=== PATIENT | male | born 1995 | race Caucasian/White ===

== ENCOUNTER 2016-10-11 21:59 | Emergency (ER) | payer BC, MEDICAID ==
--- NOTE | 2016-10-12 01:19 | ED ---
Skin Complaint - HPI Summary HPI Summary: Pt here w/ Rt great toe laceration - accidentally cut himself here w/ a emy exhaust pipe while working in his garage in flip flops earlier tonight. Reports he took a nap after this happened. Came in now as it was pretty deep and he's not sure if he needed stitches. Also wanted to make sure it doesn't get infected. Denies numbness, tingling, weakness. Last tetanus vaccine is within past 5 years. Admits to hand cuts frequently which heal well. - History of Current Complaint Chief Complaint: EDLacSutureRecheck Time Seen by Provider: 10/12/16 00:29 Stated Complaint: TOE LAC Hx Obtained From: Patient Pain Intensity: 2 - Allergy/Home Medications Allergies/Adverse Reactions: Allergies Allergy/AdvReac Type Severity Reaction Status Date / Time No Known Allergies Allergy Verified 10/11/16 22:06 PMH/Surg Hx/FS Hx/Imm Hx Previously Healthy: Yes Endocrine/Hematology History: Denies: Hx Anticoagulant Therapy, Hx Blood Disorders, Autoimmune Disease Cardiovascular History: Reports: Hx Hypertension - PRE-HYPERTENSION - no meds Denies: Hx Pacemaker/ICD Sensory History: Denies: Hx Hearing Aid Psychiatric History: Denies: Hx Panic Disorder - Immunization History Immunizations Up to Date: Yes Infectious Disease History: No Infectious Disease History: Denies: Hx of Known/Suspected MRSA, Traveled Outside the in Last 30 Days - Social History Occupation: Employed Full-time Lives: With Family Alcohol Use: Rare Hx Substance Use: No Substance Use Type: Reports: None Hx Tobacco Use: Yes Smoking Status (MU): Current Every Day Smoker - vapes Review of Systems Negative: Fever, Chills Positive: no symptoms reported Positive: Edema. Negative: Arthralgia, Myalgia Skin: Other - see HPI Negative: Weakness, Paresthesia, Numbness Psychological: Normal All Other Systems Reviewed And Are Negative: Yes Physical Exam Triage Information Reviewed: Yes Vital Signs On Initial Exam: Initial Vitals Temp Pulse Resp BP Pulse Ox 97.8 F 86 14 147/83 100 10/11/16 21:59 10/11/16 21:59 10/11/16 21:59 10/11/16 21:59 10/11/16 21:59 Vital Signs Reviewed: Yes Appearance: Positive: Well-Appearing, No Pain Distress, Well-Nourished Skin: Positive: Warm, Dry - dry, scabbed linear laceration over plantar surface of Rt great toe - no kinsey debris however toe in general appear dirty w/ stuck on lint, dried blood Head/Face: Positive: Normal Head/Face Inspection Eyes: Positive: Normal, EOMI, Conjunctiva Clear ENT: Positive: Hearing grossly normal, Pharynx normal - mucosa moist Respiratory/Lung Sounds: Positive: Breath Sounds Present Cardiovascular: Positive: Normal, Pulses are Symmetrical in both Upper and Lower Extremities Musculoskeletal: Positive: Normal, Strength/ROM Intact Neurological: Positive: Normal, Sensory/Motor Intact, Alert, Oriented to Person Place, Time, CN Intact II-III Psychiatric: Positive: Normal Procedures - Procedure Summary Procedure Summary: wound soaked and irrigated - no FB observed nor palpated. Pt's wound was dressed w/ triple anbx and sterile gauze dressing - pt tolerated well. Diagnostics - Vital Signs Vital Signs Temp Pulse Resp BP Pulse Ox 10/11/16 22:03 97.8 F 91 14 147/83 100 10/11/16 21:59 97.8 F 86 14 147/83 100 - Laboratory Diagnostic Studies Comment: Rt great toe XR (wet read) - no FB observed Lab Statement: Any lab studies that have been ordered have been reviewed, and results considered in the medical decision making process. Course/Dx - Course Course Of Treatment: Pt presents w/ toe laceration. States he will not be staying off of it via crutches. Sutures, steristrips nor dermabond were applied due to nature of wound and pt's approach to care. Advised daily soaks to prevent infection. reviewed danger s/sx of when to seek medical care. He and mother agree w/ plan and voice understanding. - Diagnoses Provider Diagnoses: Laceration of right great toe Discharge - Discharge Plan Condition: Stable Disposition: HOME Patient Education Materials: Laceration Without Closure (ED) Referrals: Yasmeen Newsome MD [Primary Care Provider] - Additional Instructions: Soak toe 2 x day - once with soapy soak, the other with epsom salt - rinse well , pat dry and apply triple antibiotic ointment and dressing. Keep toe elevated and may ice for pain and swelling. You may also take ibuprofen with food for pain, swelling. Follow-up with PCP for wound check in 3 days. *If you develop redness, swelling, purulent drainage, streaking, fever, chills, return to ED or seek medical attention sooner.
[2016-10-12 02:01] VITALS: BP 122/67
--- NOTE | 2016-10-12 07:47 | RAD ---
INDICATION: Right great toe injury. Assess for foreign body COMPARISON: None TECHNIQUE: AP, lateral, and oblique views were obtained. FINDINGS: The bony structures, joint spaces, and soft tissues are normal for age. IMPRESSION: NO FRACTURE OR FOREIGN BODY.
== END 2016-10-12 01:59 | disposition home or self-care (01) ==
LOC: ED 21:59
DX: S91.111A Laceration without foreign body of right great toe without damage to nail, initial encounter (principal); W45.8XXA Other foreign body or object entering through skin, initial encounter; Y93.9 Activity, unspecified; Y92.9 Unspecified place or not applicable
CPT/HCPCS: 99282